=== PATIENT | male | born 1965 | race Caucasian/White ===

== ENCOUNTER 2023-05-12 07:34 | Outpatient (CLI) | payer BC, SELFPAY | END 2023-05-12 07:35 | disposition home or self-care (01) | LOC: RAD 07:35 | PROVIDERS: PCP Family Medicine; Visit Provider Internal Medicine Cardiovascular Disease | DX: I21.3 ST elevation (STEMI) myocardial infarction of unspecified site (principal); I34.0 Nonrheumatic mitral (valve) insufficiency; I10 Essential (primary) hypertension | CPT/HCPCS: 93306 ==

== ENCOUNTER 2023-05-13 08:52 | Outpatient (CLI) | payer BC, SELFPAY | END 2023-05-13 08:53 | disposition home or self-care (01) | LOC: NFLDREF 05-14 10:13 | PROVIDERS: PCP Family Medicine; Referring Provider Family Medicine; Visit Provider Family Medicine | DX: E78.00 Pure hypercholesterolemia, unspecified (principal); I10 Essential (primary) hypertension; I25.10 Atherosclerotic heart disease of native coronary artery without angina pectoris; R74.01 Elevation of levels of liver transaminase levels | CPT/HCPCS: 80048; 80061; 80076 ==

== ENCOUNTER 2023-10-28 08:40 | Outpatient (CLI) | payer BC, SELFPAY | END 2023-10-28 08:41 | disposition home or self-care (01) | PROVIDERS: PCP Family Medicine; Visit Provider Family Medicine | DX: I10 Essential (primary) hypertension (principal); R79.89 Other specified abnormal findings of blood chemistry; Z12.5 Encounter for screening for malignant neoplasm of prostate | CPT/HCPCS: 80053; G0103 ==

== ENCOUNTER 2023-12-01 07:02 | Outpatient (CLI) | payer BC, SELFPAY ==
--- NOTE | 2023-12-01 07:15 | CRLHL7_ITS ---
For Patients: As a result of the Century Cures Act, medical imaging exams and procedure reports are released immediately into your electronic medical record. You may view this report before your referring provider. If you have questions, please contact your health care provider. CLINICAL HISTORY: Hepatosplenomegaly COMPARISON: none TECHNIQUE: Real time pearce scale imaging and color Doppler analysis was performed of the abdomen. FINDINGS: The liver measures 15.2 cm. No intrahepatic mass. The spleen measures 11.4 cm. The pancreas is not well visualized. The proximal abdominal aorta and IVC appear normal. There is no evidence of ascites. The gallbladder is of normal size and there is no evidence of sludge or stones within the gallbladder lumen. The gallbladder wall measures 2.3 mm in thickness. The common bile duct measures 5.4 mm in size within the kushal hepatis. The kidneys appear symmetric. The right kidney measures 11.5 cm in length and the left kidney measures 11.4 cm. There is no evidence of a renal calculus or hydronephrosis. IMPRESSION: Normal size of the liver and spleen. Dictated by Agustin Orourke MD @ 12/01/2023 7:59:47 AM (Electronically Signed)
== END 2023-12-01 07:03 | disposition home or self-care (01) ==
LOC: US 07:03
PROVIDERS: PCP Family Medicine; Visit Provider Internal Medicine Hematology & Oncology
DX: R16.2 Hepatomegaly with splenomegaly, not elsewhere classified (principal); D69.6 Thrombocytopenia, unspecified; L43.9 Lichen planus, unspecified; D72.819 Decreased white blood cell count, unspecified
CPT/HCPCS: 76700

== ENCOUNTER 2024-03-09 10:00 | Outpatient (RCR) | payer BC, SELFPAY ==
[2023-11-03 14:17] LABS: Basophils Percent Auto 0.5 % (0.0-3.0); Eosinophils Percent Auto 2.7 % (0.0-7.0); Hematocrit 42.6 % (37.0-53.0); Hemoglobin* 14.4 gm/dL (13.5-17.5); Lymphocytes Percent Auto 34.1 % (20-44); Mean Corpuscular HGB Conc 34 gm/dL (32-36); Mean Corpuscular Hemoglobin 29 pg (26-34); Mean Corpuscular Volume 87 fL (80-100); Monocytes Percent Auto 7.7 % (0.0-11.0); Platelet Count* 124 K/uL (140-440); RDW Coefficient of Variation % 12.4 % (11.5-15.5); Red Blood Count 4.89 m/uL (4.30-5.90); White Blood Count* 4.02 K/uL (4.50-11.00)
[2023-11-03 14:23] LABS: Slide Review Reflex No
[2023-11-03 15:10] LABS: Immature Reticulocyte Fraction 8.6 % (2.3-13.4); Reticulocyte Hemoglobin Equivi 32.4 pg (29.0-35.0); Reticulocyte Percent 1.1 % (0.5-2.0); Reticulocytes Absolute 0.05 # (0.03-0.08)
[2023-11-11 12:09] LABS: INR 0.98 (0.91-1.10); Prothrombin Time 13.5 Seconds
[2023-11-11 12:10] LABS: Lactate Dehydrogenase* 189 U/L (120-246); Partial Thromboplastin Time* 29 Seconds (23-33)
[2023-11-11 12:25] LABS: Erythrocyte SedimentationRate* 3 mm/hr (2-15)
[2023-11-11 12:48] LABS: C Reactive Protein* < 0.5 mg/dL (0.5-1.0)
[2023-11-11 12:56] LABS: HIV 1/2/P24 Combo Screen* Negative (Negative)
[2023-11-11 13:00] LABS: Hepatitis C Virus Antibody* Negative (Negative); Vitamin B12* 288 pg/mL (243-894)
[2023-11-12 14:55] LABS: Folate, Serum 5.1 ng/mL (>=5.9)
[2023-11-13 01:09] LABS: Anti-Nuclear Ab(ANA)IgG ELISA None Detected (None Detected)
[2024-02-27 08:33] LABS: Basophils Percent Auto 0.6 % (0.0-3.0); Eosinophils Percent Auto 3.7 % (0.0-7.0); Hematocrit 41.9 % (37.0-53.0); Hemoglobin* 14.1 gm/dL (13.5-17.5); Lymphocytes Percent Auto 36.3 % (20-44); Mean Corpuscular HGB Conc 34 gm/dL (32-36); Mean Corpuscular Hemoglobin 29 pg (26-34); Mean Corpuscular Volume 87 fL (80-100); Monocytes Percent Auto 7.9 % (0.0-11.0); Neutrophils Percent Auto 51.5 % (42.0-72.0); Platelet Count* 118 K/uL (140-440); RDW Coefficient of Variation % 12.3 % (11.5-15.5); Red Blood Count 4.83 m/uL (4.30-5.90); White Blood Count* 3.53 K/uL (4.50-11.00)
[2024-02-27 08:37] LABS: Slide Review Reflex No
[2024-02-27 09:41] LABS: Vitamin B12* 773 pg/mL (243-894)
[2024-02-28 16:40] LABS: Folate, Serum >22.3 ng/mL (>=5.9)
== END 2024-05-01 23:59 | disposition home or self-care (01) ==
LOC: CCIC 10:00
PROVIDERS: Clinical Nurse Specialist; PCP Family Medicine; Referring Provider Family Medicine; Visit Provider Internal Medicine Hematology & Oncology
DX: D69.6 Thrombocytopenia, unspecified (principal)
CPT/HCPCS: 36415; 82525; 82607; 82746; 83615; 84443; 85025; 85045; 85610; 85651; 85730; 86039; 86140; 86703; 86803; 99202; 99204; 99213; 99214; 99215; G0463

== ENCOUNTER 2024-11-30 08:22 | Outpatient (CLI) | payer OTHER, SELFPAY | END 2024-11-30 08:23 | disposition home or self-care (01) | PROVIDERS: PCP Family Medicine; Referring Provider Family Medicine; Visit Provider Family Medicine | DX: I10 Essential (primary) hypertension (principal); E78.00 Pure hypercholesterolemia, unspecified; D69.6 Thrombocytopenia, unspecified; R79.89 Other specified abnormal findings of blood chemistry; E53.8 Deficiency of other specified B group vitamins; D72.819 Decreased white blood cell count, unspecified; Z79.899 Other long term (current) drug therapy; Z12.5 Encounter for screening for malignant neoplasm of prostate | CPT/HCPCS: 80053; 80061; 82306; 82607; 82746; G0103 ==